=== PATIENT | male | born 1960 | race Caucasian/White ===

== ENCOUNTER 2023-09-16 08:28 | Outpatient (CLI) | payer BC, SELFPAY ==
--- NOTE | 2023-09-16 08:30 | XR_ITS ---
WS: [id number] RIGHT FOOT: 3 VIEW(S) TECHNIQUE: AP, oblique and lateral. HISTORY: Right foot pain COMPARISON: 12/17/2010 No acute fracture or dislocation. Mild degenerative changes in the midfoot. No fractures. Moderate amount of edema centered around the fifth metatarsal head. No fracture is identified. No joint effusion. XR/XR foot RT min 3V* [id number] IMPRESSION: 1. No fracture. 2. Moderate amount of soft tissue edema centered around the fifth metatarsal h ead.
== END 2023-09-16 08:29 | disposition home or self-care (01) ==
LOC: RAD 08:28
PROVIDERS: PCP Family Medicine; Visit Provider Nurse Practitioner Family
DX: M79.671 Pain in right foot (principal); R60.9 Edema, unspecified
CPT/HCPCS: 73630